=== PATIENT | female | born 1990 | race Caucasian/White ===

== ENCOUNTER 2019-12-05 14:29 | Emergency (ER) | payer OTHER, SELFPAY ==
[2019-12-05 14:45] VITALS: BP 116/70; PULSE 93; RESP 16; TEMP 36.9; O2SAT 100
--- NOTE | 2019-12-05 15:14 | ED.URI ---
HPI - URI/Sore Throat General Chief Complaint: Upper Respiratory Infection Stated Complaint: fever/vomitting/fatigue History of Present Illness HPI Narrative: This is a 29-year-old female that comes in complaining of sore throat runny nose for the past 2 days patient states approximately 24 hours ago she just got off of Cipro for urinary tract infection. Patient denies taking anything else patient denies any nausea vomiting diarrhea no fever Related Data Home Medications Medication Instructions Recorded Confirmed buspirone 15 mg PO BID 12/05/19 12/05/19 cyclobenzaprine 10 mg PO TID 12/05/19 12/05/19 hydroxyzine HCl 25 mg PO TID PRN 12/05/19 12/05/19 quetiapine 50 mg PO BID 12/05/19 12/05/19 risperidone 0.5 mg PO BID 12/05/19 12/05/19 trazodone 100 mg PO HS 12/05/19 12/05/19 Allergies Allergy/AdvReac Type Severity Reaction Status Date / Time levalbuterol Allergy Unknown Dyspnea / Verified 12/05/19 15:09 SOB sulfamethoxazole Allergy Unknown Hives / Verified 12/05/19 15:09 Red Face trimethoprim Allergy Unknown Hives / Verified 12/05/19 15:09 Red Face Review of Systems Review of Systems: Narrative: CONSTITUTIONAL: Denies fever, chills, or sweats. EYES: Denies visual changes, redness, or discharge. ENT: Reports rhinorrhea, congestion, sore throat, or otalgia. CARDIOVASCULAR:Denies chest pain, palpitations, or edema. RESPIRATORY: Denies cough or dyspnea. GASTROINTESTINAL: Denies abdominal pain, nausea, vomiting, or diarrhea. GENITOURINARY: Denies dysuria or hematuria. SKIN:[Denies rash or itching. MUSCULOSKELETAL:Denies back pain, joint pain, or myalgia. NEUROLOGIC: Denies headache, numbness, or weakness. PSYCHIATRIC:Denies anxiety or depression PMFSH Comments At time as signature, I have reviewed and agree with nursing past medical, social, surgical and family history. Please see nursing chart for further information. There is no relevant family history pertinent to the presenting complaint. Exam Narrative: Exam Narrative: GENERAL:Well-appearing, well-nourished, and in no acute distress. HEAD:Normocephalic, atraumatic. EYES: PERRLA and EOMI. ENT: Nares clear, no rhinorrhea or epistaxis. Mucous membranes moist. Pharyngeal erythema NECK: Supple. CHEST: Clear to auscultation. No respiratory distress. HEART: Regular rate and rhythm. No murmur heard. Normal peripheral pulses. ABDOMEN: Soft, nontender, nondistended, normal active bowel sounds. EXTREMITIES: Normal range of motion. No edema. Nausea drainage SKIN: Warm, dry, no rash. NEURO: No focal deficits. Alert and oriented x3. Course Vital Signs Vital signs: Vital Signs Temperature 98.4 F 12/05/19 14:45 Pulse Rate 93 12/05/19 14:45 Respiratory Rate 16 12/05/19 14:45 Blood Pressure 116/70 12/05/19 14:45 Pulse Oximetry 100 12/05/19 14:45 Temperature 98.4 F 12/05/19 14:45 Pulse Rate 93 12/05/19 14:45 Respiratory Rate 16 12/05/19 14:45 Blood Pressure 116/70 12/05/19 14:45 Pulse Oximetry 100 12/05/19 14:45 MDM - URI/Sore Throat Differential Diagnosis Differential diagnosis: Likely upper respiratory infection, sinusitis, viral infection and pharyngitis Discharge Plan Discharge Clinical Impression: Nausea & vomiting, Viral illness Patient Disposition: Home, Self-Care Condition: Stable Instructions: Antibiotic Form, Fever in Adults (ED), Acute Nausea and Vomiting (ED), Viral Syndrome (ED) Prescriptions: New ondansetron 4 mg tablet,disintegrating 4 mg PO Q8H PRN (Reason: nausea and vomiting) Qty: 10 RF: 0 No Action buspirone 15 mg Tablet 15 mg PO BID RF: 0 cyclobenzaprine 10 mg Tablet 10 mg PO TID RF: 0 trazodone 100 mg Tablet 100 mg PO HS RF: 0 risperidone 0.5 mg Tablet 0.5 mg PO BID RF: 0 quetiapine 50 mg Tablet 50 mg PO BID RF: 0 hydroxyzine HCl 25 mg Tablet 25 mg PO TID PRN (Reason: Anxiety) RF: 0 Follow-up/Referrals: UNKNOWN,DOCTOR [
== END 2019-12-05 15:25 | disposition home or self-care (01) ==
PROVIDERS: Emergency Provider Nurse Practitioner Family
DX: R11.2 Nausea with vomiting, unspecified (principal); B34.9 Viral infection, unspecified; K21.9 Gastro-esophageal reflux disease without esophagitis; F41.9 Anxiety disorder, unspecified; F32.9 Major depressive disorder, single episode, unspecified
CPT/HCPCS: 99213; G0463